=== PATIENT | male | born 1965 | race Hispanic/Latino ===

== ENCOUNTER 2018-07-05 22:59 | Inpatient (IN) | payer OTHER ==
[~2018-07-05] VITALS: Ht 170.2 cm; Wt 97.5 kg
[2018-07-05 23:26] LABS: BASOPHILS % (AUTO) 0.7 % (0.0-5.0); HEMATOCRIT 42.5 % (42-54); LYMPHOCYTES % (AUTO) 32.7 % (21.0-51.0); MEAN CORPUSCULAR HEMOGLOBIN 31.6 pg (27.0-33.0); MEAN CORPUSCULAR HGB CONC 34.7 g/dL (32.0-36.0); MEAN CORPUSCULAR VOLUME 91.1 fL (79-99); MONOCYTES % (AUTO) 6.4 % (3.0-13.0); NEUTROPHILS % (AUTO) 58.2 % (40.0-77.0); PLATELET COUNT (AUTO) 222 K/uL (130-400); RED BLOOD CELL COUNT(AUTO) 4.66 MIL/uL (4.50-6.20); WHITE BLOOD COUNT (AUTO) 7.6 K/uL (4.8-10.8)
[2018-07-05 23:29] LABS: CREATININE 0.9 mg/dL (0.5-1.5); POTASSIUM 3.3 mmol/L (3.5-5.1)
[2018-07-05 23:34] LABS: ALBUMIN 3.3 g/dL (3.5-5.0); BILIRUBIN,TOTAL 0.4 mg/dL (0.2-1.0); TOTAL PROTEIN, SERUM 6.6 g/dL (6.0-8.3)
[2018-07-05] MEDS ORDERED: NITROGLYCERIN 1GM/1 INCH PACKET TD ONE (23:40)
[2018-07-05 23:44] LABS: B-TYPE NATRIURETIC PEPTIDE 279 pg/mL (0-100)
[2018-07-06] VITALS (27 sets, daily range): BP systolic 122–159; BP diastolic 69–95
[2018-07-06] MEDS: NITROGLYCERIN 1GM/1 INCH PACKET TD SCH ×3 (01:00→16:59)
[2018-07-06] MEDS ORDERED: MORPHINE SULFATE 2 MG/ML 1ML SYG IV PRN (01:00)
[2018-07-06] MEDS ORDERED: ONDANSETRON HCL MDV 20ML 2 MG/ML VIAL IV PRN (01:00)
[2018-07-06 05:59] LABS: BASOPHILS % (AUTO) 0.4 % (0.0-5.0); HEMATOCRIT 41.4 % (42-54); LYMPHOCYTES % (AUTO) 36.3 % (21.0-51.0); MEAN CORPUSCULAR HEMOGLOBIN 31.8 pg (27.0-33.0); MEAN CORPUSCULAR HGB CONC 34.4 g/dL (32.0-36.0); MEAN CORPUSCULAR VOLUME 92.3 fL (79-99); MONOCYTES % (AUTO) 8.9 % (3.0-13.0); NEUTROPHILS % (AUTO) 52.4 % (40.0-77.0); NUCLEATED RED BLOOD CELLS 0.1 % (0.0-0.19); PLATELET COUNT (AUTO) 209 K/uL (130-400); RED BLOOD CELL COUNT(AUTO) 4.49 MIL/uL (4.50-6.20); RED CELL DISTRIBUTION WIDTH 12.9 % (11.0-15.5); WHITE BLOOD COUNT (AUTO) 6.8 K/uL (4.8-10.8)
[2018-07-06] MEDS ORDERED: GLUCAGON 1MG KIT 1 MG ML IM PRN (06:00)
[2018-07-06] MEDS ORDERED: LIDOCAINE HCL-MPF 1% 2ML VIAL IVP PRN (06:00)
[2018-07-06] MEDS ORDERED: DEXTROSE 50%-WATER 50 ML DISP.SYRIN IV PRN (06:00)
[2018-07-06 06:28] LABS: HEMOGLOBIN A1C 8.8 % (4.0-6.0)
[2018-07-06 06:32] LABS: CREATININE 0.9 mg/dL (0.5-1.5); POTASSIUM 3.7 mmol/L (3.5-5.1)
[2018-07-06 06:33] LABS: ALBUMIN 3.1 g/dL (3.5-5.0); BILIRUBIN,TOTAL 0.5 mg/dL (0.2-1.0); TOTAL PROTEIN, SERUM 6.3 g/dL (6.0-8.3)
[2018-07-06] MEDS: INSULIN HUMULIN R 100 UNIT/ML 3ML SQ SCH ×4 (07:29→21:03)
[2018-07-06] MEDS: ATORVASTATIN CALCIUM 40 MG TABLET PO SCH (08:31)
[2018-07-06] MEDS: METOPROLOL TARTRATE 25 MG TAB PO SCH ×2 (08:32→21:00)
[2018-07-06] MEDS ORDERED: ENOXAPARIN SODIUM 100 MG/1 ML SQ SCH (09:00)
[2018-07-06] MEDS: FAMOTIDINE/PF 20 MG/2 ML VIAL IV SCH ×2 (09:00→21:03)
[2018-07-06] MEDS ORDERED: ASPIRIN 325 MG TABLET PO SCH (09:00)
[2018-07-06] MEDS ORDERED: SODIUM CHLORIDE 0.9% 500ML 500 ML IV SCH (10:13)
[2018-07-06] MEDS: CYCLOBENZAPRINE HCL 10 MG TABLET PO SCH (10:15)
[2018-07-06 10:18] LABS: INR 0.95 (0.85-1.15)
[2018-07-06 10:31] LABS: PARTIAL THROMBOPLASTIN TIME 25.3 SEC (26.3-35.5)
[2018-07-06] MEDS ORDERED: IOHEXOL-350 50ML VIAL IV ONE (12:36)
[2018-07-06] MEDS ORDERED: IOHEXOL 350 MG/ML 100ML INFUS..BTL IV ONE (12:36)
[2018-07-06] MEDS ORDERED: BIVALIRUDIN 250 MG/VIAL IV ONE (12:36)
[2018-07-06] MEDS ORDERED: LIDOCAINE HCL 2% 20ML ONE (12:37)
[2018-07-06] MEDS ORDERED: NITROGLYCERIN 5 MG/ML 10 ML VIAL IV ONE (12:42)
[2018-07-06] MEDS ORDERED: LABETALOL HCL 5 MG/ML 20ML VIAL IV ONE ×2 (12:58→13:28)
[2018-07-06] MEDS ORDERED: NITROGLYCERIN 50 MG/D5% WATER 1 BOT ONE (13:08)
[2018-07-06] MEDS ORDERED: SODIUM CHLORIDE 0.9% 1000ML 1,000 ML IV SCH (13:35)
[2018-07-06] MEDS ORDERED: NITROGLYCERIN 50 MG/D5% WATER 250 BOT IV PRN (13:45)
[2018-07-06] MEDS ORDERED: FUROSEMIDE 10 MG/ML 4ML VIAL IVP SCH (13:45)
[2018-07-06 14:52] LABS: TROPONIN I 2.76 ng/mL (0.00-0.06)
[2018-07-06] MEDS ORDERED: FUROSEMIDE 10 MG/ML 2ML VIAL ONE (16:57)
[2018-07-06 18:10] LABS: HEMOGLOBIN A1C 8.7 % (4.0-6.0)
[2018-07-06 18:16] LABS: CHOLESTEROL 158 mg/dL (<200); HDL CHOLESTEROL 33 mg/dL (29-71); LDL DIRECT 121 mg/dL (0-99); TRIGLYCERIDES 73 mg/dL (30-200)
[2018-07-06] MEDS ORDERED: METOPROLOL TARTRATE 50 MG TAB PO SCH (21:00)
[2018-07-07] VITALS (39 sets, daily range): BP systolic 97–152; BP diastolic 50–88
[2018-07-07] MEDS: NITROGLYCERIN 1GM/1 INCH PACKET TD SCH (00:21)
[2018-07-07] MEDS ORDERED: SODIUM CHLORIDE 0.9% 1000ML 1,000 ML IV ONE (02:36)
[2018-07-07 03:36] LABS: HEMATOCRIT 39.2 % (42-54); MEAN CORPUSCULAR HEMOGLOBIN 31.4 pg (27.0-33.0); MEAN CORPUSCULAR HGB CONC 34.2 g/dL (32.0-36.0); MEAN CORPUSCULAR VOLUME 91.9 fL (79-99); PLATELET COUNT (AUTO) 210 K/uL (130-400); RED BLOOD CELL COUNT(AUTO) 4.27 MIL/uL (4.50-6.20); RED CELL DISTRIBUTION WIDTH 13.4 % (11.0-15.5); WHITE BLOOD COUNT (AUTO) 9.3 K/uL (4.8-10.8)
[2018-07-07 03:49] LABS: CREATININE 0.9 mg/dL (0.5-1.5); POTASSIUM 3.7 mmol/L (3.5-5.1)
[2018-07-07 04:10] LABS: INR 0.98 (0.85-1.15); PARTIAL THROMBOPLASTIN TIME 25.9 SEC (26.3-35.5); PROTHROMBIN TIME 10.3 SEC (9.6-11.6)
[2018-07-07] MEDS: POTASSIUM CHLORIDE 20MEQ/100ML 100 ML IV PRN ×3 (05:13→19:27)
[2018-07-07] MEDS: INSULIN HUMULIN R 100 UNIT/ML 3ML SQ SCH ×4 (06:20→19:44)
[2018-07-07] MEDS: METOPROLOL TARTRATE 25 MG TAB PO SCH (08:08)
[2018-07-07] MEDS: ATORVASTATIN CALCIUM 40 MG TABLET PO SCH (09:00)
[2018-07-07] MEDS: CYCLOBENZAPRINE HCL 10 MG TABLET PO SCH (10:15)
[2018-07-07] MEDS ORDERED: NITROGLYCERIN 50 MG/D5% WATER 1 BOT ONE (10:27)
[2018-07-07] MEDS ORDERED: CEFUROXIME SODIUM 1.5 GM VIAL IVP PRN (10:30)
[2018-07-07] MEDS ORDERED: PAPAVERINE HCL 30 MG/ML 2ML VIAL ONE (10:31)
[2018-07-07] MEDS ORDERED: OCTYL 2-CYANOACRYLATE 1 EACH TP ONE (10:31)
[2018-07-07] MEDS ORDERED: BACITRACIN 50,000 UNIT VIAL ONE (10:32)
[2018-07-07] MEDS ORDERED: ROCURONIUM BROMIDE 10MG/1ML 5ML VL ONE (10:34)
[2018-07-07] MEDS ORDERED: ESMOLOL HCL 10 MG/ML 10 ML VIAL ONE (10:36)
[2018-07-07] MEDS ORDERED: FENTANYL CITRATE PF 50 MCG/1 ML 20ML VIAL IJ ONE ×3 (10:37→14:03)
[2018-07-07] MEDS ORDERED: SODIUM BICARB 50MEQ 50ML VIAL ONE ×2 (10:37→10:43)
[2018-07-07] MEDS ORDERED: NOREPINEPHRINE BITARTRATE 1 MG/1 ML ML IV ONE (10:37)
[2018-07-07] MEDS ORDERED: MIDAZOLAM HCL 1 MG/ML 5ML VIAL ONE (10:37)
[2018-07-07] MEDS ORDERED: PROPOFOL 10 MG/ML 20ML VIAL IV ONE (10:37)
[2018-07-07] MEDS ORDERED: PROTAMINE SULFATE 10 MG/ML 25ML VIAL IV ONE (10:37)
[2018-07-07] MEDS ORDERED: EPINEPHRINE 1 MG/ML AMPULE ONE (10:37)
[2018-07-07] MEDS ORDERED: LIDOCAINE PF 2% 5ML ABBOJECT ONE ×2 (10:37→14:18)
[2018-07-07] MEDS ORDERED: AMINOCAPROIC ACID 250 MG/ML 20 ML VIAL IV ONE (10:37)
[2018-07-07] MEDS ORDERED: HEPARIN SODIUM 1000UNIT/ML 10ML VIAL ONE (10:37)
[2018-07-07] MEDS ORDERED: KETAMINE 50MG/ML SYRINGE 50 MG/ML DISP.SYRIN IV ONE (10:38)
[2018-07-07] MEDS ORDERED: ROCURONIUM 10MG/1ML SYR 10 MG/ML ML ONE ×2 (10:38→13:30)
[2018-07-07] MEDS ORDERED: VASOPRESSIN 20 UNITS/ML 1ML VIAL ONE (10:41)
[2018-07-07] MEDS ORDERED: AMIODARONE HCL 50 MG/ML 3 ML VIAL ONE (10:42)
[2018-07-07] MEDS ORDERED: GLYCOPYRROLATE 1 MG/5 ML SYRINGE ONE (10:42)
[2018-07-07] MEDS ORDERED: THROMBIN-JMI 5000 UNIT/VIAL TP ONE (10:46)
[2018-07-07 11:25] LABS: ABG BASE EXCESS 1.7 mmol/L (-2.0-3.0); ABG HCO3 25.4 mmol/L (21.0-28.0); ABG OXYGEN SATURATION 98.4 % (95.0-99.0); ABG PCO2 37 mmHg (35-48)
[2018-07-07] MEDS ORDERED: SODIUM CHLORIDE 0.9% 500ML 500 ML IV SCH (12:48)
[2018-07-07] MEDS ORDERED: PROPOFOL 1000 MG/100 ML 100 ML IV PRN (13:00)
[2018-07-07] MEDS ORDERED: ONDANSETRON HCL 4 MG/2 ML VIAL IV PRN (13:00)
[2018-07-07] MEDS ORDERED: DEXTROSE 50%-WATER 50 ML DISP.SYRIN IV PRN (13:00)
[2018-07-07] MEDS ORDERED: POTASSIUM CHLORIDE 20MEQ/100ML 100 ML IV PRN (13:00)
[2018-07-07] MEDS ORDERED: SODIUM CHLORIDE 0.9% 250 ML IV PRN (13:00)
[2018-07-07] MEDS ORDERED: SODIUM CHLORIDE 0.9% 10 ML VIAL IVP PRN (13:00)
[2018-07-07] MEDS ORDERED: NOREPINEPHRINE 4MG/NS 250ML 250 ML IV PRN (13:00)
[2018-07-07] MEDS ORDERED: AMINOCAPROIC ACID 15,000 MG in SODIUM CHLORIDE 0.9% 250 ML IV SCH (13:00)
[2018-07-07] MEDS ORDERED: POTASSIUM PHOS 15 mMOL+NS250ML 250 ML IV PRN (13:00)
[2018-07-07] MEDS ORDERED: CALCIUM GLUCONATE 1 GM in SODIUM CHLORIDE 0.9% 50 ML IV PRN (13:00)
[2018-07-07] MEDS ORDERED: NITROGLYCERIN 50 MG/D5% WATER 250 BOT IV SCH (13:00)
[2018-07-07] MEDS ORDERED: MORPHINE SULFATE 4 MG/1ML SYG IV PRN (13:00)
[2018-07-07] MEDS ORDERED: EPINEPHRINE 8 MG in SODIUM CHLORIDE 0.9% 250 ML IV PRN (13:00)
[2018-07-07] MEDS ORDERED: MORPHINE SULFATE 2 MG/ML 1ML SYG IV PRN (13:00)
[2018-07-07] MEDS ORDERED: SODIUM BICARB 50MEQ 50ML VIAL IV PRN (13:00)
[2018-07-07] MEDS ORDERED: SODIUM CHLORIDE 0.9% 1000ML 1,000 ML IV SCH (13:00)
[2018-07-07] MEDS ORDERED: ALBUMIN (HUMAN) 5% 250 ML IV PRN (13:00)
[2018-07-07] MEDS ORDERED: ACETAMINOPHEN 325 MG TAB PO PRN (13:00)
[2018-07-07] MEDS ORDERED: ACETAMINOPHEN 650 MG SUPPOSITORY RC PRN (13:00)
[2018-07-07] MEDS ORDERED: GLUCAGON 1MG KIT 1 MG ML IM PRN (13:00)
[2018-07-07] MEDS ORDERED: NICARDIPINE HCL 100 MG in SODIUM CHLORIDE 0.9% 60 ML IV PRN (13:00)
[2018-07-07 13:17] LABS: ABG HCO3 22.6 mmol/L (21.0-28.0); ABG PCO2 34 mmHg (35-48)
[2018-07-07] MEDS ORDERED: INSULIN HUMULIN R 100 UNIT/ML 3ML ONE (13:25)
[2018-07-07 13:44] LABS: ABG BASE EXCESS -1.3 mmol/L (-2.0-3.0); ABG OXYGEN SATURATION 98.1 % (95.0-99.0); ABG PCO2 33 mmHg (35-48)
[2018-07-07 14:03] LABS: ABG HCO3 22.2 mmol/L (21.0-28.0); ABG OXYGEN SATURATION 98.1 % (95.0-99.0); ABG PCO2 36 mmHg (35-48)
[2018-07-07 15:22] LABS: ABG BASE EXCESS -3.3 mmol/L (-2.0-3.0); ABG HCO3 21.5 mmol/L (21.0-28.0); ABG OXYGEN SATURATION 97.9 % (95.0-99.0); ABG PCO2 38 mmHg (35-48)
[2018-07-07 15:37] LABS: HEMATOCRIT 39.2 % (42-54); MEAN CORPUSCULAR HEMOGLOBIN 31.3 pg (27.0-33.0); MEAN CORPUSCULAR HGB CONC 33.7 g/dL (32.0-36.0); PLATELET COUNT (AUTO) 180 K/uL (130-400); RED BLOOD CELL COUNT(AUTO) 4.21 MIL/uL (4.50-6.20); WHITE BLOOD COUNT (AUTO) 19.3 K/uL (4.8-10.8)
[2018-07-07 15:49] LABS: INR 1.03 (0.85-1.15); PROTHROMBIN TIME 10.8 SEC (9.6-11.6)
[2018-07-07 15:53] LABS: CREATININE 1.2 mg/dL (0.5-1.5); MAGNESIUM 1.8 mg/dL (1.80-2.40); PHOSPHORUS 3.8 mg/dL (2.5-4.9); POTASSIUM 3.7 mmol/L (3.5-5.1)
[2018-07-07] MEDS: INSULIN REGULAR, HUMAN 3ML 100 UNIT in SODIUM CHLORIDE 0.9% 99 ML IV SCH ×2 (16:02)
[2018-07-07 16:06] LABS: PARTIAL THROMBOPLASTIN TIME 24.5 SEC (26.3-35.5)
[2018-07-07 16:14] LABS: ABG BASE EXCESS -1.1 mmol/L (-2.0-3.0); ABG HCO3 23.4 mmol/L (21.0-28.0); ABG OXYGEN SATURATION 97.7 % (95.0-99.0); ABG PCO2 39 mmHg (35-48)
[2018-07-07] MEDS: MAGNESIUM 2GM PREMIX 50ML 50 ML IV PRN (16:51)
[2018-07-07 18:00] LABS: ABG BASE EXCESS -0.5 mmol/L (-2.0-3.0); ABG HCO3 25.4 mmol/L (21.0-28.0); ABG OXYGEN SATURATION 98.6 % (95.0-99.0); ABG PCO2 46 mmHg (35-48)
[2018-07-07] MEDS: ACETAMINOPHEN 325 MG TAB PO PRN ×2 (18:36→23:03)
[2018-07-07 19:11] LABS: CREATININE 1.2 mg/dL (0.5-1.5); MAGNESIUM 2.1 mg/dL (1.80-2.40)
[2018-07-07] MEDS: KETOROLAC TROMETHAMINE 30MG/ML IV SCH (19:15)
[2018-07-07 20:06] LABS: ABG BASE EXCESS 0.6 mmol/L (-2.0-3.0); ABG HCO3 25.6 mmol/L (21.0-28.0); ABG OXYGEN SATURATION 97.7 % (95.0-99.0); ABG PCO2 43 mmHg (35-48)
[2018-07-07] MEDS: CEFUROXIME SODIUM 1.5 GM VIAL IVP SCH (22:02)
[2018-07-07] MEDS: TRAMADOL HCL 50 MG TABLET PO PRN (23:04)
[2018-07-08] VITALS (27 sets, daily range): BP systolic 107–164; BP diastolic 61–97
[2018-07-08] MEDS: KETOROLAC TROMETHAMINE 30MG/ML IV SCH ×4 (00:23→19:39)
[2018-07-08] MEDS: INSULIN REGULAR, HUMAN 3ML 100 UNIT in SODIUM CHLORIDE 0.9% 99 ML IV SCH ×2 (03:30)
[2018-07-08] MEDS: ACETAMINOPHEN 325 MG TAB PO PRN ×2 (04:11→19:39)
[2018-07-08] MEDS: TRAMADOL HCL 50 MG TABLET PO PRN ×2 (04:12→13:53)
[2018-07-08 04:19] LABS: HEMATOCRIT 37.7 % (42-54); MEAN CORPUSCULAR HEMOGLOBIN 31.5 pg (27.0-33.0); MEAN CORPUSCULAR HGB CONC 34.2 g/dL (32.0-36.0); MEAN CORPUSCULAR VOLUME 92.2 fL (79-99); PLATELET COUNT (AUTO) 183 K/uL (130-400); RED BLOOD CELL COUNT(AUTO) 4.09 MIL/uL (4.50-6.20); RED CELL DISTRIBUTION WIDTH 13.1 % (11.0-15.5); WHITE BLOOD COUNT (AUTO) 21.4 K/uL (4.8-10.8)
[2018-07-08 04:41] LABS: INR 1.04 (0.85-1.15); PARTIAL THROMBOPLASTIN TIME 26.4 SEC (26.3-35.5); PROTHROMBIN TIME 10.9 SEC (9.6-11.6)
[2018-07-08 04:43] LABS: MAGNESIUM 1.8 mg/dL (1.80-2.40); PHOSPHORUS 3.7 mg/dL (2.5-4.9)
[2018-07-08] MEDS: MAGNESIUM 2GM PREMIX 50ML 50 ML IV PRN (04:48)
[2018-07-08] MEDS: INSULIN HUMULIN R 100 UNIT/ML 3ML SQ SCH ×4 (07:30→19:46)
[2018-07-08] MEDS: ATORVASTATIN CALCIUM 40 MG TABLET PO SCH (08:12)
[2018-07-08] MEDS: ASPIRIN 81 MG EC TAB PO SCH (08:12)
[2018-07-08] MEDS ORDERED: SODIUM CHLORIDE 0.9% 100 ML IV ONE (08:17)
[2018-07-08] MEDS: CEFUROXIME SODIUM 1.5 GM VIAL IVP SCH ×2 (08:18→21:18)
[2018-07-08] MEDS ORDERED: PANTOPRAZOLE 40 MG/VIAL IV SCH (09:00)
[2018-07-08] MEDS: CYCLOBENZAPRINE HCL 10 MG TABLET PO SCH (10:15)
[2018-07-08] MEDS ORDERED: FUROSEMIDE 10 MG/ML 2ML VIAL ONE (14:33)
[2018-07-08] MEDS ORDERED: FUROSEMIDE 10 MG/ML 2ML VIAL IV SCH (15:00)
[2018-07-08] MEDS ORDERED: PROMETHAZINE/CODEINE 6.25-10MG/5ML CUP PO PRN (21:45)
[2018-07-09] VITALS (19 sets, daily range): BP systolic 127–155; BP diastolic 74–103
[2018-07-09] MEDS: ACETAMINOPHEN 325 MG TAB PO PRN (00:58)
[2018-07-09] MEDS: KETOROLAC TROMETHAMINE 30MG/ML IV SCH ×4 (00:58→17:27)
[2018-07-09 04:31] LABS: HEMATOCRIT 35.3 % (42-54); MEAN CORPUSCULAR HEMOGLOBIN 31.7 pg (27.0-33.0); MEAN CORPUSCULAR VOLUME 93.1 fL (79-99); PLATELET COUNT (AUTO) 140 K/uL (130-400); RED BLOOD CELL COUNT(AUTO) 3.79 MIL/uL (4.50-6.20); RED CELL DISTRIBUTION WIDTH 13.3 % (11.0-15.5); WHITE BLOOD COUNT (AUTO) 13.4 K/uL (4.8-10.8)
[2018-07-09 04:39] LABS: CREATININE 1.1 mg/dL (0.5-1.5); MAGNESIUM 2.3 mg/dL (1.80-2.40); POTASSIUM 3.8 mmol/L (3.5-5.1)
[2018-07-09] MEDS: POTASSIUM CHLORIDE 20MEQ/100ML 100 ML IV PRN (06:08)
[2018-07-09] MEDS: INSULIN HUMULIN R 100 UNIT/ML 3ML SQ SCH ×4 (06:42→20:50)
[2018-07-09] MEDS: ATORVASTATIN CALCIUM 40 MG TABLET PO SCH (08:43)
[2018-07-09] MEDS: FUROSEMIDE 10 MG/ML 2ML VIAL IV SCH (08:43)
[2018-07-09] MEDS: ASPIRIN 81 MG EC TAB PO SCH (08:43)
[2018-07-09] MEDS: PANTOPRAZOLE SODIUM 40 MG TABLET.DR PO SCH (08:44)
[2018-07-09] MEDS ORDERED: METOPROLOL TARTRATE 25 MG TAB PO SCH (09:30)
[2018-07-09] MEDS: TRAMADOL HCL 50 MG TABLET PO PRN (10:03)
[2018-07-09] MEDS ORDERED: POLYETHYLENE GLYCOL 3350 17 GM POWD.PACK ONE (10:05)
[2018-07-09] MEDS: POLYETHYLENE GLYCOL 3350 17 GM POWD.PACK PO SCH (10:15)
[2018-07-09] MEDS ORDERED: HYDRALAZINE HCL 20 MG/ML VIAL ONE (14:12)
[2018-07-09] MEDS ORDERED: HYDRALAZINE HCL 20 MG/ML VIAL IV PRN ×2 (14:15)
[2018-07-09] MEDS: LINAGLIPTIN 5 MG TABLET PO SCH (20:46)
[2018-07-09] MEDS: METOPROLOL TARTRATE 50 MG TAB PO SCH (20:46)
[2018-07-09] MEDS: ENOXAPARIN SODIUM 30 MG/0.3 ML SQ SCH (20:47)
[2018-07-10] MEDS: KETOROLAC TROMETHAMINE 30MG/ML IV SCH (00:07)
[2018-07-10 03:00] VITALS: BP 126/86
[2018-07-10 04:09] LABS: HEMATOCRIT 35.2 % (42-54); MEAN CORPUSCULAR HEMOGLOBIN 31.6 pg (27.0-33.0); PLATELET COUNT (AUTO) 174 K/uL (130-400); RED BLOOD CELL COUNT(AUTO) 3.79 MIL/uL (4.50-6.20); RED CELL DISTRIBUTION WIDTH 13.2 % (11.0-15.5); WHITE BLOOD COUNT (AUTO) 11.2 K/uL (4.8-10.8)
[2018-07-10 04:18] LABS: POTASSIUM 4.4 mmol/L (3.5-5.1)
[2018-07-10 04:21] LABS: B-TYPE NATRIURETIC PEPTIDE 483 pg/mL (0-100)
[2018-07-10] MEDS: TRAMADOL HCL 50 MG TABLET PO PRN ×2 (04:47→21:27)
[2018-07-10] MEDS: INSULIN HUMULIN R 100 UNIT/ML 3ML SQ SCH ×4 (06:42→21:46)
[2018-07-10 07:00] VITALS: BP 153/93
[2018-07-10] MEDS: ASPIRIN 81 MG EC TAB PO SCH (08:24)
[2018-07-10] MEDS: POLYETHYLENE GLYCOL 3350 17 GM POWD.PACK PO SCH ×2 (08:24→08:27)
[2018-07-10] MEDS: PANTOPRAZOLE SODIUM 40 MG TABLET.DR PO SCH (08:24)
[2018-07-10] MEDS: METFORMIN HCL 500 MG TABLET PO SCH ×2 (08:24→16:51)
[2018-07-10] MEDS: METOPROLOL TARTRATE 50 MG TAB PO SCH ×2 (08:24→21:27)
[2018-07-10] MEDS: LINAGLIPTIN 5 MG TABLET PO SCH (08:24)
[2018-07-10] MEDS: ATORVASTATIN CALCIUM 40 MG TABLET PO SCH (08:24)
[2018-07-10] MEDS: ENOXAPARIN SODIUM 30 MG/0.3 ML SQ SCH (08:25)
[2018-07-10] MEDS: FUROSEMIDE 10 MG/ML 2ML VIAL IV SCH (08:25)
[2018-07-10 11:00] VITALS: BP 138/94
[2018-07-10] MEDS: LISINOPRIL 5 MG TABLET PO SCH (11:12)
[2018-07-10 16:00] VITALS: BP 141/91
[2018-07-10 19:00] VITALS: BP 137/77
[2018-07-10] MEDS: ACETAMINOPHEN 325 MG TAB PO PRN (21:28)
[2018-07-10 23:00] VITALS: BP 128/83
[2018-07-11] MEDS: TRAMADOL HCL 50 MG TABLET PO PRN ×3 (02:45→10:30)
[2018-07-11 04:00] VITALS: BP 147/90
[2018-07-11] MEDS: INSULIN HUMULIN R 100 UNIT/ML 3ML SQ SCH ×2 (05:29→11:30)
[2018-07-11 07:27] VITALS: BP 141/89
[2018-07-11] MEDS ORDERED: METFORMIN HCL 850 MG TABLET PO SCH (08:00)
[2018-07-11] MEDS: METOPROLOL TARTRATE 50 MG TAB PO SCH (10:17)
[2018-07-11] MEDS: ATORVASTATIN CALCIUM 40 MG TABLET PO SCH (10:17)
[2018-07-11] MEDS: PANTOPRAZOLE SODIUM 40 MG TABLET.DR PO SCH (10:17)
[2018-07-11] MEDS: LISINOPRIL 5 MG TABLET PO SCH (10:18)
[2018-07-11] MEDS: POLYETHYLENE GLYCOL 3350 17 GM POWD.PACK PO SCH (10:18)
[2018-07-11] MEDS: LINAGLIPTIN 5 MG TABLET PO SCH (10:18)
[2018-07-11] MEDS: ASPIRIN 81 MG EC TAB PO SCH (10:18)
[2018-07-11] MEDS: ENOXAPARIN SODIUM 30 MG/0.3 ML SQ SCH (10:19)
[2018-07-11 11:17] VITALS: BP 145/92
[2018-07-11] MEDS ORDERED: LINA5TAB PO (11:44)
[2018-07-11] MEDS ORDERED: METO50 PO (11:44)
[2018-07-11] MEDS ORDERED: LISI-617 PO (11:44)
[2018-07-11] MEDS ORDERED: AEC81 PO (11:44)
[2018-07-11] MEDS ORDERED: PANT40TA PO (11:44)
[2018-07-11] MEDS ORDERED: ATOR40TA69 PO (11:44)
[2018-07-11] MEDS ORDERED: METF850T PO (11:44)
[2018-07-11] MEDS ORDERED: FURO20TA6 PO (11:44)
[2018-07-12] MEDS ORDERED: FUROSEMIDE 20 MG TABLET PO SCH (09:00)
== END 2018-07-11 14:30 | disposition home or self-care (01) | DRG 235 ==
LOC: EDH 22:59 → OBSVTOIN 23:00 → EDHIP 23:00 → 4AH 07-06 01:28 → 2CH 07-06 13:32 → 2CV 07-07 11:18 → 2CH 07-08 06:04 → 2AH 07-09 17:19
PROVIDERS: ADMIT Hospitalist; ATTEND Hospitalist
PROC: 5A02210 Assistance with Cardiac Output using Balloon Pump, Continuous (ICD-10-PCS; 2018-07-07)
PROC: 5A1221Z Performance of Cardiac Output, Continuous (ICD-10-PCS; 2018-07-07)
PROC: 02100Z9 Bypass Coronary Artery, One Artery from Left Internal Mammary, Open Approach (ICD-10-PCS; principal; 2018-07-07 10:49)
PROC: 021209W Bypass Coronary Artery, Three Arteries from Aorta with Autologous Venous Tissue, Open Approach (ICD-10-PCS; 2018-07-07 10:49)
PROC: 06BQ4ZZ Excision of Left Saphenous Vein, Percutaneous Endoscopic Approach (ICD-10-PCS; 2018-07-07 10:49)
DX: I21.4 Non-ST elevation (NSTEMI) myocardial infarction (principal); I50.41 Acute combined systolic (congestive) and diastolic (congestive) heart failure; J98.11 Atelectasis; Z99.11 Dependence on respirator [ventilator] status; I11.0 Hypertensive heart disease with heart failure; I25.110 Atherosclerotic heart disease of native coronary artery with unstable angina pectoris; E11.65 Type 2 diabetes mellitus with hyperglycemia; E87.6 Hypokalemia; E11.59 Type 2 diabetes mellitus with other circulatory complications; E78.5 Hyperlipidemia, unspecified; G89.29 Other chronic pain; Z79.4 Long term (current) use of insulin; Z79.82 Long term (current) use of aspirin; Z87.891 Personal history of nicotine dependence; Z82.3 Family history of stroke; Z82.49 Family history of ischemic heart disease and other diseases of the circulatory system; Z82.5 Family history of asthma and other chronic lower respiratory diseases
CPT/HCPCS: 36415; 71045; 80048; 80053; 80061; 80339; 82435; 82550; 82803; 82947; 82948; 83036; 83605; 83735; 83874; 83880; 84100; 84132; 84295; 84484; 85018; 85025; 85027; 85347; 85610; 85730; 86850; 86900; 86901; 86922; 93005; 93306; 93458; 93880; 94002; 94010; 94150; 94760; 97039; A4218; A4606; A7048; C1760; C1894; C9113; J0171; J0282; J0360; J0583; J0697; J1644; J1650; J1815; J1885; J1940; J2001; J2250; J2440; J2704; J2720; J3010; J3475; J3480; J3490; J7030; J7040; J7120; P9045; Q9967

== ENCOUNTER 2019-05-18 19:21 | Emergency (ER) | payer OTHER ==
[~2019-05-18 19:21] MED LIST: AEC81 PO; ATOR40TA69 PO; FURO20TA6 PO; LINA5TAB PO; LISI-617 PO; METF850T PO; METO50 PO; PANT40TA PO
[2019-05-18] MEDS ORDERED: ASPIRIN 325MG EC TAB 325 MG TABLET.DR PO ONE (20:21)
[2019-05-18] MEDS ORDERED: NITROGLYCERIN 0.4 MG SL TAB SL ONE (20:22)
== END 2019-05-18 22:02 | disposition home or self-care (01) ==
LOC: EDH 19:21 → EDHIP 19:22 → UNDOADMOB 19:22 → EDH 22:02
DX: R07.89 Other chest pain (principal); R06.02 Shortness of breath; R11.0 Nausea; E11.9 Type 2 diabetes mellitus without complications; I10 Essential (primary) hypertension
CPT/HCPCS: 36415; 71045; 83880; 84484; 93005

== ENCOUNTER 2020-07-21 04:32 | Emergency (ER) | payer MEDICARE ==
[2020-07-21] MEDS ORDERED: KETOROLAC TROMETHAMINE 60 MG/2 ML VIAL ONE (05:05)
[2020-07-21] MEDS ORDERED: LIDOCAINE 5% TOPICAL PATCH TP ONE (05:05)
== END 2020-07-21 06:01 | disposition home or self-care (01) ==
LOC: EDH 04:32
DX: M62.830 Muscle spasm of back (principal); M54.6 Pain in thoracic spine; E11.9 Type 2 diabetes mellitus without complications; I10 Essential (primary) hypertension
CPT/HCPCS: 96372; 99283; J1885